=== PATIENT | male | born 1985 | race Caucasian/White ===

== ENCOUNTER 2024-12-31 08:36 | Emergency (ER) | payer OTHER, SELFPAY ==
[2024-12-31] VITALS (10 sets, daily range): BP systolic 142–166; BP diastolic 87–102; PULSE 66–85; RESP 15–21; TEMP 36.9; O2SAT 97–100
--- NOTE | ~2024-12-31 | XR_ITS ---
CHEST RADIOGRAPH, PA AND LATERAL CLINICAL HISTORY: palpitations . COMPARISON: None available TECHNIQUE: PA and lateral views of the chest. FINDINGS The cardiomediastinal silhouette is unremarkable. Elevation of the right hemidiaphragm with adjacent compressive atelectasis. The remainder of the lungs are clear. IMPRESSION: No focal infiltrate or effusion. Reviewed, dictated and finalized at location A.
--- NOTE | 2024-12-31 08:40 | ECG_ITS ---
Test Date: 2024-12-31 08:44:00 Measurements Intervals [place] Rate: 84 P: 12 SD: 138 QRS: -30 QRSD: 101 T: 13 QT: 375 QTc: 445 Interpretive Statements SINUS RHYTHM BORDERLINE LEFT AXIS DEVIATION [QRS AXIS < -20] VOLTAGE CRITERIA FOR LVH [MEETS CRITERIA IN ONE OF: R(aVL), S(V1), R(V5), R(V5/V6)+S(V1)] No previous ECG available for comparison Electronically Signed On 12-31-2024 15:07:41 CDT by Sam Villalobos M.D.
--- OUTSIDE RECORDS SUMMARY | 2024-12-31 11:55 | XMS_ITS | Clinical Summary ---
Author Organization [facility] Building A Address [address] [place] [address] Care Team Providers Care Ear Machine Operator Name Role Phone Mario Ellington MD Primary Care Provider [phone] [phone] Allergies Active Allergy Reactions Criticality Noted Date Comments Penicillins Rash Medium 12/23/2024 Medications metoprolol XL (TOPROL-XL) 50 mg extended release tabletIndications :Primary hypertension Take 1 tablet (50 mg total) by mouth daily 90 tablet 3 5 12/24/19 26 Active sertraline (ZOLOFT) 50 mg tabletIndications :Recurrent major depressive disorder, in remission Take 1 tablet (50 mg total) by mouth daily 90 tablet 3 5 12/24/19 26 Active losartan-hydrochl orothiazide (HYZAAR) 100-25 mg per tablet Take 1 tablet by mouth daily 12/24/19 25 Discontinu ed(Alterna te therapy) sertraline (ZOLOFT) 50 mg tablet Take 1 tablet (50 mg total) by mouth daily 12/24/19 25 Discontinu ed(Duplica te order) Active Problems Problem Noted Date Diagnosed Date Primary hypertension 12/23/2024 Assessment & Plan (12/23/2024 4:17 PM CDT): History of essential hypertension. Previously on losartan hydrochlorothiazide 100/ 25 Has not taken in the past 7 days blood pressure today 152/96 Will switch to metoprolol 50 mg extended release to help with his chronic migraines. We will discontinue the losartan hydrochlorothiazide and patient will monitor blood pressure at home. If blood pressure is not appropriate will add on losartan. Previous PCP lab work awaiting record release Recurrent major depression 12/23/2024 Assessment & Plan (12/23/2024 4:17 PM CDT): History of depression well controlled on Zoloft 50 mg we will continue current dosage Intractable chronic migraine without aura 2024 Assessment & Plan (12/23/2024 4:18 PM CDT): History of chronic migraines. We will prescribe metoprolol to help with prevention and also with his blood pressure. Tylenol and ibuprofen use it advised for abortive measures as patient does not qualify for Triptan due to uncontrolled blood pressure currently Encounters Date Type Department Care Team Description 12/31/2024 8:00 AM CDT Office Visit [facility] [address] [address] Lissette Ortega NP Elevated blood pressure reading in office with diagnosis of hypertension (Primary Dx); Tachycardia; Palpitations 12/31/2024 Patient Self-Triage [facility] HealthCare/ Physicians [address] [place] [id number] Mychart, Generic Provider 12/23/2024 2:30 PM CDT Office Visit [facility] at [address] [place] [address] Mario Ellington MD Primary hypertension (Primary Dx); Recurrent major depressive disorder, in remission; Intractable chronic migraine without aura and with status migrainosus from Last 3 Months Medical History Medical History Date Comments Sleep apnea 2023 Migraines 1996 Hypertension 2013 Anxiety Depression Family History Medical History Relation Name Comments Cancer Father Colt Diabetes Father Colt Hypertension Father Colt Cancer Maternal Grandmother Liz Hypertension Mother Aminah Relation Name Status Comments Father Colt Maternal Grandmother Liz Mother Aminah Alive Social History Tobacco Use Types Packs/Day Years Used Date Smoking Tobacco: Never Smokeless Tobacco: Never Tobacco Cessation:Counseling Given: Not Answered PHQ-2 Answer Date Recorded PHQ-2 Total Score (If total score is 3 or more points, staff should administer the PHQ-9) 2 12/23/2024 PHQ-9 Answer Date Recorded PHQ-9 Total Score 8 12/23/2024 Sex and Gender Information Value Date Recorded Sex Assigned at Not on file 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 Gender Identity Not on file Sexual Orientation Not on file Obstetrics History Last Filed Vital Signs Vital Sign Reading Time Taken Comments Blood Pressure 165/102 12/31/2024 8:18 AM CDT Pulse 107 12/31/2024 8:03 AM CDT Temperature 37.1 C (98.7 F) 12/31/2024 8:03 AM CDT Respiratory Rate 18 12/31/2024 8:03 AM CDT Oxygen Saturation 96% 12/31/2024 8:03 AM CDT Inhaled Oxygen Concentration - - Weight 115.2 kg (254 lb) 12/31/2024 8:03 AM CDT Height 170.2 cm (5' 7) 12/31/2024 8:03 AM CDT Body Mass Index 39.78 12/31/2024 8:03 AM CDT Plan of Treatment Health Maintenance Due Date Last Done Comments Hepatitis C Screening 1985 DTaP/Tdap/Td Vaccine (1 - Tdap) 1996 Varicella Vaccines (1 of 2 - 13+ 2-dose series) 1998 Hepatitis B Screening 2003 Regular Well Visit/Exam 18-64 2003 Influenza Vaccine (Season Ended) 2025 Depression Screening 12/23/2025 12/23/2024, 12/23/2024 HPV Vaccines Aged Out No longer eligi ble based on patient's age to complete this topic Pneumococcal vaccine <65 Aged Out No longer eligible based on patient's age to complete this topic Insurance [employer] [facility] HMO Care Teams Ear Machine Operator Relationship Specialty Start Date End Date Mario Ellington MD [address] [place] [address] DR HOPKINS [address] [place] [id number] PCP - General Family Medicine 12/23/24
--- OUTSIDE RECORDS SUMMARY | 2024-12-31 11:55 | XMS_ITS | Encounter Summary ---
Author Organization [facility] Healthcare Address [address] [place] [id number] Care Team Providers Care Marine Engine Driver Name Role Phone Mario Ellington MD Primary Care Provider [phone] Encounter Details Date Type Department Care Team (Late st Contact Info) Description 12/31/2024 Patient Self-Triage [facility] Health[facility] [address] [place] [address] Mychart, Generic Provider [facility] [place] [id number] Social History Tobacco Use Types Packs/Day Years Used Date Smoking Tobacco: Never Smokeless Tobacco: Never PHQ-2 Answer Date Recorded PHQ-2 Total Score (If total score is 3 or more points, staff should administer the PHQ-9) 2 12/23/2024 PHQ-9 Answer Date Recorded PHQ-9 Total Score 8 12/23/2024 Sex and Gender Information Value Date Recorded Sex Assigned at Not on file 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
--- OUTSIDE RECORDS SUMMARY | 2024-12-31 11:55 | XMS_ITS | Encounter Summary ---
Author Organization [facility] Healthcare Address [address] [place] [address] Care Team Providers Care Audio Visual Production Specialist Name Role Phone Mario Ellington MD Primary Care Provider [phone] Reason for Visit * Reason Comments Hypertension Pt c/o new bp med th at isn't controlling and migraine since med change last week Encounter Details Date Type Department Care Team (Late st Contact Info) Description 12/31/2024 8:00 AM CDT Office Visit [facility] at [address] [address] [place] [address] [place] [address] [address] [place] [address] Elevated blood pressure reading in office with diagnosis of hypertension (Primary Dx); Tachycardia; Palpitations Social History Tobacco Use Types Packs/Day Years [...] on file 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 Subjective/Objective Patient ID: Herve Lorenzo is a 39 y.o. male. This patient has verbally consented to recording this visit in order to utilize AI technology in generating this note. Chief Complaint Hypertension (Pt c/o new bp med that isn't controlling and migraine since med change last week) History of Present Illness Herve Lorenzo is a 39 year old male with hypertension who presents with a persistent headache. He has experienced a headache for two weeks, located in the occipital region and bilaterally, severe enough to cause nocturnal awakenings. Pgvy-tbx-dhgjiqj medications like Excedrin and ibuprofen have been ineffective. He recently switched his antihypertensive medication, which he believes is not effectively managinghis blood pressure and is causing palpitations. Home blood pressure readings are elevated, around 150/100 mmHg or higher. A follow-up appointment is scheduled in two weeks with his primary care provider. He has a history of migraines but does not take migraine-specific medication. He consumes caffeine in the morning and maintains adequate hydration. No visual changes, shortness of breath, or chest pain are present. Review of Systems All other systems reviewed and are negative. Physical Exam Physical Exam Vitals and nursing note reviewed. Constitutional: General: He is not in acute distress. Appearance: Normal appearance. He is not ill-appearing. Cardiovascular: Rate and Rhythm: Regular rhythm. Tachycardia present. Pulses: Normal pulses. Heart sounds: Normal heart sounds. Pulmonary: Effort: Pulmonary effort is normal. Breath sounds: Normal breath sounds. Skin: General: Skin is warm and dry. Capillary Refill: Capillary refill takes less than 2 seconds. Neurological: Mental Status: He is alert and oriented to person, place, and time. Gait: Gait normal. Vitals: 12/31/24 0803 12/31/24 0818 BP: (!) 156/102 (!) 165/102 Pulse: 107 Resp: 18 Temp: 37.1 ??C (98.7 ??F) SpO2: 96% Weight: 115.2 kg (254 lb) Height: 170.2 cm (5' 7) No results found. Past Medical History: Diagnosis Date Anxiety Depression Hypertension 2012 Migraines 1996 Sleep apnea 2023 Current Outpatient Medications: metoprolol XL (TOPROL-XL) 50 mg extended release tablet, Take 1 tablet (50 mg total) by mouth daily, Disp: 90 tablet, Rfl: 3 sertraline (ZOLOFT) 50 mg tablet, Take 1 tablet (50 mg total) by mouth daily, Disp: 90 tablet, Rfl:3 Allergies Allergen Reactions Penicillins Rash Social History Tobacco Use Smoking status: Never Smokeless tobacco: Never Substance and Sexual Activity Drug use: Never Sexual activity: Yes Partners: Female control/protection: None Alcohol Use: Not on file No past surgical history on file. Procedures Assessment/Plan 1. Elevated blood pressure reading in office with diagnosis of hypertension (Primary) 2. Tachycardia 3. Palpitations Results Assessment & Plan Elevated blood pressure Blood pressure consistently 150/100 mmHg or higher. Recent antihypertensive change and NSAID use may contribute to headache. Medication side effects possible. Adjustments needed for effective control. - Discontinue NSAIDs to prevent further elevation. - Recommend acetaminophen up to 4000 mg/day for pain, per package directions. - offered to Administer clonidine one-time antihypertensive dose in clinic to assess headache impact. Pt declined at this time, states would like to go to ED. - Monitor and record home blood pressure for follow-up with PCP. - Contact primary care for medication adjustment discussion before follow-up. Headache Persistent headache possibly linked to elevated blood pressure or medication side effects. Severityand location concerning. Emergency evaluation discussed. - Trial antihypertensive in clinic to assess headache resolution. Pt declined. - Discussed with patient red flag that headache is severe enough to wake him from sleeping. - Seek emergency care for migraine treatment and evaluation. - Follow up with primary care post-ER visit for headache and blood pressure management. - Pt to go to ED for further evaluation and treatment. Disposition Treatment plan including expectations, follow up, and return precautions discussed with patient/parent, verbalizes understanding. Medication dosage, use, and potential adverse reactions discussed with patient/parent. Advised to follow up with PCP if symptoms do not resolve as expected or sooner if condition worsens. Signs/symptoms warranting ER evaluation reviewed. Patient and/or guardian was given an opportunity to ask questions, questions answered. Lissette Ortega NP This office note has been partially dictated using [employer] software, and as a result portions of the record may have been created with this software. Occasional wrong-word or 'rtmgc-[id number]' substitutions may have occurred due to the inherent limitations of voice recognition software. Read the chartcarefully and recognize, using context, where substitutions have occurred. Cosigned by Dariusz Casiano MD at 12/31/2024 8:42 AM CDT documented in this encounter Plan of Treatment Not on file documented as of this encounter Visit Diagnoses Diagnosis Elevated blood pressure reading in office with diagnosis of hypertension- Primary Tachycardia Unspecified tachycardia Palpitations documented in this encounter Care Teams Audio Visual Production Specialist Relationship Specialty Start Date End Date Mario Ellington MD [address] [facility] [address] [address] PCP - General Family Medicine 12/23/24 documented as of this encounter
--- OUTSIDE RECORDS SUMMARY | 2024-12-31 11:55 | XMS_ITS | Referral Summary ---
Author Organization [facility] Medical Office Building A Address [address] [place] [address] Care Team Providers Care Television Journalist Name Role Phone Mario Ellington MD Primary Care Provider [phone] Encounters Date Type Department Care Team Description 12/31/2024 8:00 AM CDT Office Visit [facility] Medical [facility] at [address] [address] Lissette Ortega NP Elevated blood pressure reading in office with diagnosis of hypertension (Primary Dx); Tachycardia; Palpitations 12/31/2024 Patient Self-Triage [facility] HealthCare/ Physicians [address] [place] [address] Mychart, Generic Provider 12/23/2024 2:30 PM CDT Office Visit [facility] Medical Group Residency Clinic at [address] [place] [address] Mario Ellington MD Primary hypertension (Primary Dx); Recurrent major depressive disorder, in remission; Intractable chronic migraine without aura and with status migrainosus from Last 3 Months Allergies Active Allergy Reactions Criticality Noted Date [...] Take 1 tablet by mouth daily 12/24/19 Discontinu ed(Alterna te therapy) sertraline (ZOLOFT) 50 mg tablet Take 1 tablet (50 mg total) by mouth daily 12/24/19 Discontinu ed(Duplica te order) Active Problems Problem [...] Triptan due to uncontrolled blood pressure currently Social History Tobacco Use Types Packs/Day Years [...] on file 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
[2024-12-31] MEDS: SODIUM CHLORIDE 0.9% IV 1,000 ML 999 ML IV CONT (11:56)
[2024-12-31] MEDS: KETOROLAC 30 MG/ML VIAL (*BKC) IV PUSH (12:00)
[2024-12-31 12:07] LABS: Basophils Percent Auto 0.5 % (0.2-1.2); Eosinophils Absolute Auto 0.1 K/mm3 (0-0.3); Eosinophils Percent Auto 1.2 % (0-4.4); Hematocrit 45.7 % (42.0-52.0); Hemoglobin 15.4 g/dL (14.0-18.0); Immature Granulocyte Absolute 0.03 K/mm3 (0.00-0.031); Immature Granulocyte Percent A 0.4 % (0-0.5); Lymphocytes Percent Auto 26.5 % (18.3-44.2); Mean Corpuscular HGB Conc 33.7 g/dl (32-36); Mean Corpuscular Hemoglobin 28.1 pg (26-34); Mean Corpuscular Volume 83.4 fl (80-100); Mean Platelet Volume 8.2 fl (7.4-10.4); Monocytes Absolute Auto 0.8 K/mm3 (0.1-0.6); Monocytes Percent Auto 9.2 % (2.6-8.5); Neutrophils Absolute Auto 5.2 K/mm3 (1.3-6.7); Neutrophils Percent Auto 62.2 % (45.5-73.1); Platelet Count Result 282 k/mm3 (150-375); Red Blood Count 5.48 M/mm3 (4.6-6.20); Red Cell Distribution Width 12.5 % (11.5-14.5); White Blood Count 8.3 K/mm3 (4.5-10.0)
[2024-12-31 12:18] LABS: Alanine Aminotransferase 35 U/L (6-50); Albumin Level 4.6 g/dL (3.5-5.1); Alkaline Phosphatase 144 U/L (38-126); Anion Gap 11 mmol/L (4-12); Aspartate Amino Transferase 46 U/L (17-59); Bilirubin,Total 0.8 mg/dL (0.2-1.3); Blood Urea Nitrogen 13 mg/dL (9-20); Carbon Dioxide 23 mmol/L (22-30); Chloride 104 mmol/L (98-107); Estimated CRCL calculation 181 ml/min; Estimated Glomerular Filt Rate > 60; Glucose 112 mg/dL (65-110); Potassium 3.5 mmol/L (3.4-5.0); Sodium 138 mmol/L (137-145)
[2024-12-31 12:19] LABS: Prothrombin Time 13.9 Seconds (11.1-14.7)
[2024-12-31 12:20] LABS: Partial Thromboplastin Time 26.9 Seconds (22.3-36.8)
[2024-12-31 12:36] LABS: Troponin I < 0.012 ng/mL (0.000-0.034)
--- NOTE | 2024-12-31 14:09 | ED_ITS ---
HPI - General Adult General Chief complaint: Arrhythmia/Palpitations Stated complaint: headache, chest issues - fluttering Time Seen by Provider: 12/31/24 11:37 History of Present Illness HPI narrative: Patient is a 39-year-old male who presents ER with headache. Posterior an aching. Reports consistent with previous migraine. Also having some fluttering feelings in his chest. No racing heart. No exertional chest discomfort. Recently started metoprolol. No other aggravating or alleviating factors. No fevers/chills. Related Data Allergies Allergy/AdvReac Type Severity Reaction Status Date / Time Penicillins Allergy Intermediate Rash Verified 12/31/24 11:54 Review of Systems 2 Review of Systems: All systems reviewed & are unremarkable except as noted in HPI and below Constitutional: Constitutional: Reports no additional constitutional complaints Cardiovascular: Cardiovascular: Reports no additional cardiovascular complaints Respiratory: Respiratory: Reports no additional respiratory complaints Gastrointestinal: Gastrointestinal: Reports no additional gastrointestinal complaints PMFSH Past Medical History Medical History (Updated 12/31/24 @ 14:38 by Henri Whitmore MD) Migraine Hypertension Exam 2 Narrative: GENERAL: Well-appearing, well-nourished, and in no acute distress. HEAD: Normocephalic, atraumatic. ENT: Mucous membranes moist. CHEST: Clear to auscultation. No respiratory distress. HEART: Regular rate and rhythm. Normal peripheral pulses. ABDOMEN: Soft, nontender, nondistended. EXTREMITIES: Normal range of motion. No edema. SKIN: Warm, dry, no rash. NEURO: Alert and oriented x3. PSYCH: Normal mood and affect. Course Course Emergency Course: Resting comfortably. Mild improvement with Toradol. Appropriate for discharge home. Has had Fioricet past which helps his headaches. Vital Signs Vital signs: Vital Signs Temperature 98.4 F 12/31/24 08:55 Pulse Rate 84 12/31/24 08:55 Respiratory Rate 16 12/31/24 08:55 Blood Pressure 166/102 H 12/31/24 08:55 Pulse Oximetry 100 12/31/24 08:55 Oxygen Delivery Room Air 12/31/24 08:55 Temperature 98.4 F 12/31/24 08:55 Pulse Rate 76 12/31/24 10:57 Respiratory Rate 18 12/31/24 10:57 Blood Pressure 159/97 H 12/31/24 10:57 Pulse Oximetry 100 12/31/24 11:35 Oxygen Delivery Room Air 12/31/24 11:35 Medical Decision Making Vital Signs Vital Signs: Vital Signs Temperature 98.4 F 12/31/24 08:55 Pulse Rate 84 12/31/24 08:55 Respiratory Rate 16 12/31/24 08:55 Blood Pressure 166/102 H 12/31/24 08:55 Pulse Oximetry 100 12/31/24 08:55 Oxygen Delivery Room Air 12/31/24 08:55 Temperature 98.4 F 12/31/24 08:55 Pulse Rate 76 12/31/24 10:57 Respiratory Rate 18 12/31/24 10:57 Blood Pressure 159/97 H 12/31/24 10:57 Pulse Oximetry 100 12/31/24 11:35 Oxygen Delivery Room Air 12/31/24 11:35 Lab Data 12/31/24 12:02 12/31/24 12:02 Labs: Lab Results 12/31/24 Range/Units 12:02 WBC 8.3 (4.5-10.0) K/mm3 RBC 5.48 (4.6-6.20) M/mm3 Hgb 15.4 (14.0-18.0) g/dL Hct 45.7 (42.0-52.0) % MCV 83.4 (80-100) fl MCH 28.1 (26-34) pg MCHC 33.7 (32-36) g/dl RDW 12.5 (11.5-14.5) % Plt Count 282 (150-375) k/mm3 MPV 8.2 (7.4-10.4) fl Immature Gran % (Auto) 0.4 (0-0.5) % Neut % (Auto) 62.2 (45.5-73.1) % Lymph % (Auto) 26.5 (18.3-44.2) % Reagan % (Auto) 9.2 H (2.6-8.5) % Eos % (Auto) 1.2 (0-4.4) % Baso % (Auto) 0.5 (0.2-1.2) % Lymph # (Auto) 2.20 (0.9-3.2) K/mm3 Reagan # (Auto) 0.8 H (0.1-0.6) K/mm3 Eos # (Auto) 0.1 (0-0.3) K/mm3 Baso # (Auto) 0.0 (0.0-0.1) K/mm3 Abs Immat Gran (auto) 0.03 (0.00-0.031) K/mm3 Absolute Neuts (auto) 5.2 (1.3-6.7) K/mm3 Absolute Nucleated RBC 0.000 (0.0-0.012) K/mm3 Nucleated RBC % 0.0 (0.0-0.2) % PT 13.9 (11.1-14.7) Seconds INR 1.0 APTT 26.9 (22.3-36.8) Seconds Sodium 138 (137-145) mmol/L Potassium 3.5 (3.4-5.0) mmol/L Chloride 104 (98-107) mmol/L Carbon Dioxide 23 (22-30) mmol/L Anion Gap 11 (4-12) mmol/L BUN 13 (9-20) mg/dL Creatinine 0.57 L (0.7-1.3) mg/dL Estim Creat Clear Calc 181 ml/min Estimated GFR > 60 (59 - ) Glucose 112 H (65-110) mg/dL Calcium 9.0 (8.4-10.2) mg/dL Total Bilirubin 0.8 (0.2-1.3) mg/dL AST 46 (17-59) U/L ALT 35 (6-50) U/L Alkaline Phosphatase 144 H (38-126) U/L Troponin I < 0.012 (0.000-0.034) ng/mL Total Protein 8.0 (6.3-8.2) g/dL Albumin 4.6 (3.5-5.1) g/dL Imaging Data Radiologist's impression: ITS Impressions Chest X-Ray 12/31/24 12:17 IMPRESSION: No focal infiltrate or effusion. Discharge Plan Discharge Clinical Impression: Migraine, Palpitations Patient Disposition: Home Condition: Stable Instructions: Heart Palpitations (ED), Migraine Headache (ED) Additional Instructions: Please return to the emergency department if you develop severe and persistent chest pain, difficulty breathing, dizziness, leg swelling or if you are coughing up blood as these can be signs of a medical emergency. Please call your doctor for a follow up appointment to determine the need for further testing. Patient Language: Upper Sorbian Prescriptions: New eogmkbapke-bzbiobkcdrfvz-ojkp [Fioricet] 50-300-40 mg capsule 1 cap PO Q8H PRN (Reason: pain) Qty: 20 0RF Follow-up/Referrals: UNKNOWN,DOCTOR [Primary Care Provider] -
== END 2024-12-31 14:40 | disposition home or self-care (01) ==
PROVIDERS: Emergency Provider Emergency Medicine
DX: G43.909 Migraine, unspecified, not intractable, without status migrainosus (principal); R00.2 Palpitations; I10 Essential (primary) hypertension
CPT/HCPCS: 36415; 71046; 80053; 84484; 85025; 85610; 85730; 93005; 96361; 96374; 99284; J1885; J7030